=== PATIENT | female | born 1930 | race Caucasian/White ===

== ENCOUNTER 2016-09-09 12:22 | Emergency (ER) | payer OTHER ==
[2016-09-09 12:39] VITALS: BP 130/61; PULSE 114; RESP 20; TEMP 97.9; O2SAT 95
--- NOTE | 2016-09-09 14:44 | DX ---
Right Wrist Series, Four Views Indication: Trauma. Comparison: None. Findings: The bones are diffusely demineralized. A lucency traversing the waist in the navicular bon e on the oblique view either represents a nondisplaced fracture or prominent trabecular lucency. Frac ture plane is not confirmed on the three additional views. 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 Marked productive arthropathy involves th e first metacarpocarpal joint. Benign dystrophic soft tissue calcification near the base of the thumb . Impression: 1. Demineralization. 2. Equivocal nondisplaced fracture waist of navicular bone. Comment: Case discussed with Gaurav Geller PA-C, at 2:40 p.m. September 09, 2016.
--- NOTE | 2016-09-09 14:48 | EDPHY ---
H & P Stated Complaint: foosh r wrist 09/07 HPI/ROS: Chief complaint: Right wrist injury History of present illness: This is an 86-year-old female who presents to the emergency department for right wrist injury. Approximately 2 days ago she tripped and fell onto her wrist injuring it. Since then she has had pain and swelling. She has been treating at home primarily with icing but symptoms persist. She denies other associated signs or symptoms including no open wounds and no abnormal coolness or paresthesias in the right upper extremity. She denies trauma to the rest of the body. - Personal History Current Tetanus/Diphtheria Vaccine: Yes - Medical/Surgical History Hx Asthma: No Hx Chronic Respiratory Disease: No Hx Diabetes: No Hx Cardiac Disease: No Hx Renal Disease: No Hx Cirrhosis: No Hx Alcoholism: No Hx HIV/AIDS: No Hx Splenectomy or Spleen Trauma: No Other PMH: denies - Social History Smoking Status: Never smoked - Physical Exam Exam: General: Alert, nontoxic Skin: No open wounds to the right upper extremity Musculoskeletal: Diffuse tenderness to the wrist including snuffbox tenderness. The rest of the right upper extremity is nontender. She can move the digits in the right hand, the right wrist, the right elbow and right shoulder well. Vascular: Radial pulses 2+. Capillary refill brisk in the right hand. Neurologic: Sensation intact throughout the right upper extremity Constitutional: Initial Vital Signs Temperature (C) 36.6 C 09/09/16 12:36 Heart Rate 114 H 09/09/16 12:36 Respiratory Rate 20 09/09/16 12:36 Blood Pressure 130/61 H 09/09/16 12:36 O2 Sat (%) 95 09/09/16 12:36 O2 Delivery Mode Room Air Allergies/Adverse Reactions: Penicillins Allergy (Verified 09/09/16 12:35) Home Medications: Medication Instructions Recorded AMITRIPTYLINE HCL 09/09/16 Cymbalta 09/09/16 Meprobamate 09/09/16 Medical Decision Making - Diagnostics Imaging: X-ray series of the right wrist is concerning for a navicular bone fracture Procedures: Procedure: Splint placement. A thumb spica splint was applied. After application of the splint I returned and re-examined the patient. The splint was adequately immobilizing the joint and distal to the splint the patient's circulation and sensation was intact. ED Course/Re-evaluation: Patient seen under the supervision of my secondary supervising physician Dr. Avani Mello. Patient presents to the emergency department for a right wrist injury. The right upper extremity is neurovascularly intact. There is concern for a right scaphoid fracture. Patient is placed in a thumb spica splint. Home care is discussed. She is referred to a hand surgeon for further evaluation and care. Strict return precautions given. Patient voiced understanding and agreement plan. Differential Diagnosis: Included but not limited to contusion, sprain or strain, fracture, joint dislocation Departure - Departure Disposition: Home, Routine, Self-Care Clinical Impression: Scaphoid fracture Qualifiers: Encounter type: initial encounter Scaphoid bone location: middle third Fracture type: closed Fracture alignment: nondisplaced Laterality: right Qualifier Code: (S62.024A) Nondisplaced fracture of middle third of navicular [ scaphoid] bone of right wrist, initial encounter for closed fracture Condition: Good Instructions: Scaphoid Fracture (ED) Additional Instructions: Follow-up with a hand surgeon for continued evaluation and care If symptoms worsen or new symptoms develop return to the emergency department for recheck Referrals: OUT OF STATE,. [Primary Care Provider] - As per Instructions Broderick Escobedo MD [Medical Doctor] - As per Instructions
== END 2016-09-09 14:57 | disposition home or self-care (01) ==
DX: S62.024A Nondisplaced fracture of middle third of navicular [scaphoid] bone of right wrist, initial encounter for closed fracture (principal); W01.0XXA Fall on same level from slipping, tripping and stumbling without subsequent striking against object, initial encounter
CPT/HCPCS: 73110; 99283; L3807

== ENCOUNTER 2017-09-19 15:58 | Emergency (ER) | payer OTHER ==
[2017-09-19 16:10] VITALS: RESP 16; TEMP 98.4; O2SAT 96
--- NOTE | 2017-09-19 17:07 | EDPHY ---
H & P Smoking Status: Never smoked Time Seen by Provider: 09/19/17 16:45 HPI/ROS: CHIEF COMPLAINT: Head injury HISTORY OF PRESENT ILLNESS: 87-year-old female presents to the emergency department with closed head injury. Around 1:00 p.m. This afternoon the patient tripped on a step and fell forward hitting the right side of her head on a marble table. She did not lose consciousness. She complained of localized headache. She applied ice to her head for approximately 1 hr. She states then she vacuumed and continues do some housework. She has some mild pain to the right side of her head where she hit. Denies neck pain. Denies chest pain or difficulty breathing. No visual changes. No nausea or vomiting. No history of previous head injuries. She does not take any anticoagulant medication. She does not take aspirin. REVIEW OF SYSTEMS: Constitutional: No fever, no chills. Eyes: No double or blurry vision. ENT: No sore throat. Respiratory: Occasional cough. no shortness of breath. Cardiac: No chest pain. Gastrointestinal: No abdominal pain, vomiting or diarrhea. Genitourinary: No dysuria. Musculoskeletal: No neck or back pain. Skin: No rashes. Neurological: headache. (Melanie Faulkner) Past Medical/Surgical History: Lumbar fusion, hysterectomy, bilateral foot surgery, appendectomy, GERD, allergies (Melanie Faulkner) Social History: and lives with her daughter (Melanie Faulkner) Physical Exam: General Appearance: Alert, no distress. Daughter at bedside. Tenderness with palpation to the right side of her scalp. There is a palpable hematoma noted. No abrasion, puncture wound or laceration. No evidence of IVS depressed skull fracture. Eyes: Pupils equal and round. Extraocular motions are all intact. ENT: Mouth: Mucous membranes moist. Respiratory: No wheezing, rhonchi, or rales, lungs are clear to auscultation. Cardiovascular: Regular rate and rhythm. Gastrointestinal: Abdomen is soft and nontender, no masses, no rebound or guarding, bowel sounds normal. Neurological: Alert and oriented x 3, cranial nerves II through XII grossly intact Skin: Warm and dry, no rashes. Musculoskeletal: Nontender to palpate along the cervical, thoracic or lumbar spine. Neck is supple. Extremities: Full range of motion and no peripheral edema. Psychiatric: Patient is oriented X 3, there is no agitation. (Melanie Faulkner) Constitutional: Initial Vital Signs Temperature (C) 36.9 C 09/19/17 16:07 Heart Rate 91 09/19/17 16:07 Respiratory Rate 16 09/19/17 16:07 Blood Pressure 158/90 H 09/19/17 16:07 O2 Sat (%) 96 09/19/17 16:07 O2 Delivery Mode Room Air Allergies/Adverse Reactions: Penicillins Allergy (Verified 09/19/17 16:06) Home Medications: Medication Instructions Recorded AMITRIPTYLINE HCL 09/09/16 Cymbalta 09/09/16 Meprobamate 09/09/16 Medical Decision Making - Diagnostics Imaging: Discussed imaging studies w/ director of quality Radiologist, I viewed and interpreted images myself - Diagnostics Imaging Results: Imaging Impressions Head CT 09/19/17 17:02 Impression: 1. No acute intracranial findings. 2. Diffuse cerebral atrophy, with periventricular and subcortical low attenuation, consistent with chronic microvascular ischemic gliosis. Findings discussed with Melanie Faulkner PA-C, on September 19, 2017 at 1820. ED Course/Re-evaluation: 87-year-old female presents with closed head injury. Patient did not lose consciousness. She does however have pain to the right side of her head where she hit. She denies any presyncopal symptoms prior to her fall. I do not think laboratory studies are indicated. CT scan of the brain has been ordered and is pending. I did discuss the pros and cons including radiation exposure with the patient and her daughter at bedside and they verbalized understanding and agreed. CT scan was normal. Patient was given closed-head injury precautions and will return if she has any concerns. (Melanie Faulknre) I did not see this patient while she was in the emergency department. However her care was discussed with the PA while the patient was in the department. I agree with treatment plan and management (Michael Tolentino) Differential Diagnosis: Head injury including but not limited to concussion, skull fracture, intraparenchymal contusion, subarachnoid, subdural and epidural hematoma. (Melanie Faulkner) Departure - Departure Disposition: Home, Routine, Self-Care Clinical Impression: Head injury Qualifiers: Encounter type: initial encounter Qualified Code(s): S09.90XA - Unspecified injury of head, initial encounter Condition: Good Instructions: Head Injury (ED) Additional Instructions: Avoid any activity that might put you at risk for another head injury for at least 1 week. Return to the emergency department sooner if you develop headache , vomiting, altered mental status, or any other concerns. Referrals: Wendy Bryant MD [Primary Care Provider] - 2-3 days, call for appt.
[2017-09-19 19:01] VITALS: BP 145/88; PULSE 84
== END 2017-09-19 18:59 | disposition home or self-care (01) ==
DX: S09.90XA Unspecified injury of head, initial encounter (principal); W01.198A Fall on same level from slipping, tripping and stumbling with subsequent striking against other object, initial encounter; Y99.8 Other external cause status

== ENCOUNTER → 2018-06-12 | Outpatient (CLI) | payer OTHER | LOC: BMCIMAGING 13:00 | PROVIDERS: ATTEND Internal Medicine | DX: J40 Bronchitis, not specified as acute or chronic (principal) ==

== ENCOUNTER → 2018-08-29 | Outpatient (CLI) | payer OTHER | LOC: BMCIMAGING 10:03 | PROVIDERS: ATTEND Internal Medicine | DX: M51.17 Intervertebral disc disorders with radiculopathy, lumbosacral region (principal); M51.36 Other intervertebral disc degeneration, lumbar region; Z98.1 Arthrodesis status ==

== ENCOUNTER 2019-01-11 09:13 | Day surgery (SDC) | payer OTHER | END 2019-01-11 13:20 | disposition home or self-care (01) | LOC: FSGY 09:13 ==